=== PATIENT | female | born 1985 | race Caucasian/White ===

== ENCOUNTER → 2020-09-02 | Outpatient (CLI) | payer OTHER | END | disposition home or self-care (01) | LOC: STAR 12:58 | PROVIDERS: ATTEND Obstetrics & Gynecology | DX: Z20.828 Contact with and (suspected) exposure to other viral communicable diseases (principal) | CPT/HCPCS: 87635 ==

== ENCOUNTER 2020-09-09 05:25 | Inpatient (IN) | payer OTHER ==
[~2020-09-09] VITALS: Ht 167.6 cm; Wt 93.2 kg
[2020-09-09] MEDS ORDERED: OXYTOCIN 30U/ 0.9% NaCL 500ML 500 ML ONE (05:31)
[2020-09-09] MEDS ORDERED: METOCLOPRAMIDE 5 MG/ML, 2ML ONE (05:31)
[2020-09-09] MEDS ORDERED: NEWBORN KIT ONE (05:31)
[2020-09-09] MEDS ORDERED: SODIUM CITRATE/CITRIC ACID 15 ML UDC ONE (05:31)
[2020-09-09] MEDS ORDERED: METOCLOPRAMIDE 5 MG/ML, 2ML IV ONE (06:00)
[2020-09-09] MEDS ORDERED: LACTATED RINGERS 1,000 ML IVBOLUS ONE (06:00)
[2020-09-09] MEDS ORDERED: SODIUM CITRATE/CITRIC ACID 30 ML UDC PO ONE (06:00)
[2020-09-09] MEDS ORDERED: LACTATED RINGERS 1,000 ML IV SCH ×4 (06:00→08:30)
[2020-09-09 06:01] LABS: BASOPHILS % (AUTO) 0 % (0-1); EOSINOPHILS % (AUTO) 0 % (1-7); LYMPHOCYTES % (AUTO) 27 % (22-44); MEAN CORPUSCULAR HEMOGLOBIN 30.4 pg (27.0-34.8); MEAN CORPUSCULAR HGB CONC 34.1 g/dL (32.4-35.8); MEAN PLATELET VOLUME 10.2 fL (7.4-10.4); MONOCYTES % (AUTO) 7 % (2-9); NEUTROPHILS % (AUTO) 66 % (42-75); PLATELET COUNT 176 x10^3/uL (130-400); RED BLOOD COUNT 4.19 x10^6/uL (3.82-5.3)
[2020-09-09 06:09] LABS: MD NO
[2020-09-09] MEDS ORDERED: FENTANYL PF 100 MCG/2ML ONE (08:19)
[2020-09-09] MEDS ORDERED: CEFAZOLIN 1,000 MG ONE ×2 (08:19)
[2020-09-09] MEDS ORDERED: OXYTOCIN 10 UNITS/ML, 1ML ONE ×3 (08:19→08:20)
[2020-09-09] MEDS ORDERED: KETOROLAC 30 MG/1 ML ONE (08:20)
[2020-09-09] MEDS ORDERED: MISOPROSTOL 200 MCG TABLET PR PRN (08:30)
[2020-09-09] MEDS: LACTATED RINGERS 1,000 ML IV SCH ×2 (08:30→16:30)
[2020-09-09] MEDS: KETOROLAC 30 MG/1 ML IV SCH ×3 (08:30→20:37)
[2020-09-09] MEDS ORDERED: ACETAMINOPHEN 325 MG TABLET PO PRN ×2 (08:30)
[2020-09-09] MEDS ORDERED: SIMETHICONE 80 MG CHEW TAB PO PRN (08:30)
[2020-09-09] MEDS ORDERED: morphine SULFATE 10 MG/ML, 1ML IM PRN (08:30)
[2020-09-09] MEDS ORDERED: MEASLES,MUMPS&RUBELLA VACC/PF 0.5 ML SQ-VACC PRN (08:30)
[2020-09-09] MEDS ORDERED: DIPH,PERTUSS(ACELL),TET VAC/PF NC IM-VACC PRN (08:30)
[2020-09-09] MEDS ORDERED: CALCIUM CARBONATE 500 MG TAB.CHEW PO PRN (08:30)
[2020-09-09] MEDS ORDERED: ONDANSETRON 2MG/ML, 2ML IV PRN (08:30)
[2020-09-09] MEDS ORDERED: DOCUSATE 100 MG CAPSULE PO PRN (08:30)
[2020-09-09] MEDS ORDERED: RHOGAM FROM BLOOD BANK 1 NOTE EA IM/IV ONE (08:30)
[2020-09-09] MEDS ORDERED: HYDROcodone/APAP 5/325 TABLET PO PRN (08:30)
[2020-09-09] MEDS ORDERED: OXYTOCIN 30U/ 0.9% NaCL 500ML 500 ML IV SCH ×2 (08:30)
[2020-09-09] MEDS ORDERED: PRENATAL VIT/IRON/FA 1 EACH TABLET PO SCH (09:00)
[2020-09-09] MEDS: PRENATAL VIT/IRON/FA 1 EACH TABLET PO SCH (09:00)
[2020-09-09] MEDS ORDERED: EPHEDRINE 50 MG/ML, 1ML ONE (09:01)
[2020-09-09] MEDS ORDERED: DIPHENHYDRAMINE 50 MG/ML, 1ML IM PRN (10:00)
[2020-09-09] MEDS ORDERED: LABETALOL 5MG/ML, 20ML IV PRN (10:00)
[2020-09-09] MEDS ORDERED: HYDROcodone/APAP 7.5-325MG/15ML UDC PO PRN (10:00)
[2020-09-09] MEDS ORDERED: FENTANYL PF 100 MCG/2ML IV PRN (10:00)
[2020-09-09] MEDS ORDERED: ONDANSETRON 2MG/ML, 2ML IVPush PRN (10:00)
[2020-09-09] MEDS ORDERED: DIPHENHYDRAMINE 50 MG/ML, 1ML IVPush PRN (10:00)
[2020-09-09] MEDS ORDERED: morphine SULFATE 10 MG/ML, 1ML IVPush PRN (10:00)
[2020-09-09] MEDS ORDERED: METOCLOPRAMIDE 5 MG/ML, 2ML IVPush PRN (10:00)
[2020-09-09] MEDS ORDERED: EPHEDRINE 50 MG/ML, 1ML IVPush PRN (10:00)
[2020-09-09 12:00] VITALS: BP 114/68
[2020-09-09] MEDS: MORPHINE SULFATE 4 MG/ML, 1ML IVPush PRN ×2 (12:16→12:42)
[2020-09-09] MEDS ORDERED: MEPERIDINE/PF 50 MG/ML IM PRN (13:00)
[2020-09-09] MEDS ORDERED: MEPERIDINE/PF 50 MG/ML ONE ×2 (13:02→18:29)
[2020-09-09] MEDS: MEPERIDINE/PF 25MG/0.5ML IM PRN ×2 (13:08→18:34)
[2020-09-09] MEDS: HYDROcodone/APAP 5/325 TABLET PO PRN ×3 (14:47→23:35)
[2020-09-09 16:10] VITALS: BP 122/68
[2020-09-09 16:52] LABS: BASOPHILS % (AUTO) 0 % (0-1); EOSINOPHILS % (AUTO) 0 % (1-7); LYMPHOCYTES % (AUTO) 17 % (22-44); MEAN CORPUSCULAR HEMOGLOBIN 30.3 pg (27.0-34.8); MEAN CORPUSCULAR HGB CONC 33.7 g/dL (32.4-35.8); MEAN PLATELET VOLUME 9.8 fL (7.4-10.4); MONOCYTES % (AUTO) 7 % (2-9); NEUTROPHILS % (AUTO) 76 % (42-75); PLATELET COUNT 144 x10^3/uL (130-400); RED BLOOD COUNT 3.63 x10^6/uL (3.82-5.3); RED CELL DISTRIBUTION WIDTH 13.2 % (9.6-15.2)
[2020-09-09 17:04] LABS: MD NO
[2020-09-09] MEDS: SIMETHICONE 80 MG CHEW TAB PO PRN (18:37)
[2020-09-09 20:00] VITALS: BP 123/78
[2020-09-09] MEDS: DOCUSATE 100 MG CAPSULE PO PRN (23:35)
[2020-09-10 00:25] VITALS: BP 126/85
[2020-09-10] MEDS: KETOROLAC 30 MG/1 ML IV SCH ×4 (02:40→20:59)
[2020-09-10] MEDS: HYDROcodone/APAP 5/325 TABLET PO PRN ×4 (04:06→22:30)
[2020-09-10 07:30] VITALS: BP 124/76
[2020-09-10] MEDS: DOCUSATE 100 MG CAPSULE PO PRN ×2 (08:15→22:30)
[2020-09-10] MEDS: PRENATAL VIT/IRON/FA 1 EACH TABLET PO SCH (08:15)
[2020-09-10] MEDS: SIMETHICONE 80 MG CHEW TAB PO PRN ×2 (13:01→22:30)
[2020-09-10 21:05] VITALS: BP 132/89
[2020-09-11] MEDS: KETOROLAC 30 MG/1 ML IV SCH (03:11)
[2020-09-11] MEDS: HYDROcodone/APAP 5/325 TABLET PO PRN ×5 (03:12→22:27)
[2020-09-11] MEDS: PRENATAL VIT/IRON/FA 1 EACH TABLET PO SCH (07:48)
[2020-09-11] MEDS: DOCUSATE 100 MG CAPSULE PO PRN ×2 (07:48→22:27)
[2020-09-11 08:01] VITALS: BP 135/87
[2020-09-11] MEDS ORDERED: DOCU-131 PO (08:20)
[2020-09-11] MEDS ORDERED: IBUP-1222 PO (08:20)
[2020-09-11] MEDS ORDERED: HYDR-3240 PO (08:21)
[2020-09-11] MEDS: SIMETHICONE 80 MG CHEW TAB PO PRN (10:56)
[2020-09-11] MEDS: IBUPROFEN 600 MG TABLET PO PRN ×2 (10:56→18:31)
[2020-09-11 20:00] VITALS: BP 123/80
[2020-09-12] MEDS: IBUPROFEN 600 MG TABLET PO PRN ×2 (00:27→06:39)
[2020-09-12] MEDS: HYDROcodone/APAP 5/325 TABLET PO PRN ×3 (02:38→10:38)
[2020-09-12 09:00] VITALS: BP 128/87
[2020-09-12] MEDS: DOCUSATE 100 MG CAPSULE PO PRN (10:38)
[2020-09-12] MEDS: PRENATAL VIT/IRON/FA 1 EACH TABLET PO SCH (10:39)
== END 2020-09-12 10:50 | disposition home or self-care (01) | DRG 788 ==
LOC: LDIP 05:25 → 2NW 11:56
PROVIDERS: ADMIT Obstetrics & Gynecology; ATTEND Obstetrics & Gynecology
PROC: 10D00Z1 Extraction of Products of Conception, Low, Open Approach (ICD-10-PCS; principal; 2020-09-09)
PROC: 0U903ZZ Drainage of Right Ovary, Percutaneous Approach (ICD-10-PCS; 2020-09-09)
PROC: 3E0234Z Introduction of Serum, Toxoid and Vaccine into Muscle, Percutaneous Approach (ICD-10-PCS; 2020-09-09)
DX: O99.72 Diseases of the skin and subcutaneous tissue complicating childbirth (principal); Z37.0 Single live birth; L73.9 Follicular disorder, unspecified; N83.00 Follicular cyst of ovary, unspecified side; O32.1XX0 Maternal care for breech presentation, not applicable or unspecified; O34.83 Maternal care for other abnormalities of pelvic organs, third trimester; Z3A.39 39 weeks gestation of pregnancy; Z23 Encounter for immunization
CPT/HCPCS: 36415; 85025; 86592; 86762; 86850; 86900; 87340; 87806; G0378; J0690; J1885; J2175; J3010; C1765; G0475; J2270; J2590; J2765; J7120